=== PATIENT | female | born 1945 | race Caucasian/White ===

== ENCOUNTER 2018-07-02 04:15 | Emergency (ER) | payer OTHER ==
[2018-07-02] MEDS ORDERED: HYDROCODONE/APAP 10/325 TAB ONE (06:10)
--- NOTE | 2018-07-02 07:10 | ER ---
Nurse's Notes [facility] Name: Mireya Ahumada Age: 72 yrs Sex: Female : 1945 Arrival Date: 07/02/2018 Time: 04:16 Bed 4 Private MD: Diagnosis: Pain in left knee;Fall from standing height;left hip pain Presentation: 07/02 04:24 Presenting complaint: Patient states: Fell on L hip on 06/22 and had Xrays done on tl2 06/24. Xrays were negative and pt sent home with tramadol and Tylenol #3. Pt states the pain has not gone away and she is not able to bear weight on left leg. No deformity noted, pt reports swelling to BLE. Transition of care: patient was not received from another setting of care. Onset of symptoms was June 22, 2018. Risk Assessment: Do you want to hurt yourself or someone else? Patient reports no desire to harm self or others. Initial Sepsis Screen: Does the patient meet any 2 criteria? No. Patient's initial sepsis screen is negative. Does the patient have a suspected source of infection? No. Patient's initial sepsis screen is negative. Care prior to arrival: None. 04:24 Method Of Arrival: Wheelchair tl2 04:24 Acuity: REINALDO 3 tl2 Triage Assessment: 04:27 General: Appears in no apparent distress. uncomfortable, Behavior is calm, cooperative, tl2 appropriate for age. Pain: Complains of pain in left hip and left leg Pain currently is 10 out of 10 on a pain scale. Neuro: Level of Consciousness is awake, alert, obeys commands, Oriented to person, place, time, situation. Cardiovascular: Denies chest pain. Cardiovascular: Patient's skin is warm and dry. Pulses are all present. Edema is 2+ to left ankle, left foot, right ankle and right foot. Respiratory: Airway is patent Respiratory effort is even, unlabored, Respiratory pattern is regular, symmetrical. GI: No signs and/or symptoms were reported involving the gastrointestinal system. Derm: Skin is pink, warm \T\ dry. Musculoskeletal: Circulation, motion, and sensation intact. Range of motion: limited in left hip and left knee. Historical: - Allergies: 04:27 No Known Allergies; tl2 - Home Meds: 04:27 None [Active]; tl2 - PMHx: 04:27 Hypertension; tl2 - PSHx: 04:27 melanoma removed; tl2 - Immunization history:: Adult Immunizations up to date, Flu vaccine is not up to date. - Social history:: Smoking status: Patient/guardian denies using tobacco. - Ebola Screening: : No symptoms or risks identified at this time. Screenin:30 Abuse screen: Denies threats or abuse. Nutritional screening: No deficits noted. tl2 Tuberculosis screening: No symptoms or risk factors identified. Fall Risk Gait- Impaired (20 pts.). Assessment: 05:16 Reassessment: see triage assessment. tl1 07:00 Reassessment: RECD REPORT FROM ALEKSANDER CASEY. 72YO WF P/W PAIN 1 WK S/P FALL. NO RAD bp ABNORMALITIES OR DEFORMITIES NOTED. DISPO PENDING. Vital Signs: 04:27 BP 171 / 63; Pulse 79; Resp 20; Temp 98(O); Pulse Ox 97% on R/A; Weight 108.86 kg; tl2 Height 5 ft. 2 in. (157.48 cm); Pain 10/10; 05:56 BP 150 / 60; Pulse 85; Resp 17; Pulse Ox 98% ; Pain 7/10; tl1 07:00 BP 139 / 90; Pulse 90; Resp 16; Pulse Ox 97% ; bp 04:27 Body Mass Index 43.90 (108.86 kg, 157.48 cm) tl2 ED Course: 04:16 Patient arrived in ED. ds1 04:26 Triage completed. tl2 04:27 Arm band placed on right wrist. tl2 04:30 Patient has correct armband on for positive identification. Placed in gown. Bed in low tl2 position. Call light in reach. Side rails up X2. Adult w/ patient. 04:31 Mainor Cano MD is Attending Physician. ps1 05:17 No provider procedures requiring assistance completed. tl1 05:21 Knee Left 3 View XRAY In Process Unspecified. EDMS 05:39 CT completed. Pt tolerated procedure poorly. Patient moved back from CT. kw1 05:39 Pelvis Wo Cont In Process Unspecified. EDMS 06:58 Nathaniel Rodriges, RN is Primary Nurse. bp 07:15 Patient did not have IV access during this emergency room visit. tl2 Administered Medications: 06:04 Drug: [place] 10 mg-325 mg 1 tabs Route: PO; tl1 07:00 Follow up: Response: No adverse reaction; Pain is decreased tl2 Outcome: 07:09 Discharge ordered by . ps1 07:15 Discharged to home via wheelchair, with family. tl2 07:15 Condition: stable 07:15 Discharge instructions given to patient, family, Instructed on discharge instructions, follow up and referral plans. medication usage, Demonstrated understanding of instructions, follow-up care, medications, Prescriptions given X 3. 07:15 Patient left the ED. tl2 Signatures: Dispatcher [employer] [facility] Brooklynn Oakley ds1 Fatemeh Almaguer RN RN tl1 Aleksander Quintanilla RN RN tl2 Nathaniel Rodriges RN RN Mainor Thornton MD MD ps1 Claudia Gregory kw1
--- NOTE | 2018-07-02 07:10 | EDPHYS ---
Physician Documentation [facility] Name: Mireya Ahumada Age: 72 yrs Sex: Female : 1945 Arrival Date: 07/02/2018 Time: 04:16 Bed 4 Private MD: ED Physician Mainor Cano HPI: 07/02 04:45 This 72 yrs old Female presents to ER via Wheelchair with complaints of Fall ps1 Injury. 04:45 patient fell 9 days ago and was seen at [facility] for same complaint. ps1 Reportedly has pain in left hip and knee that is not controlled with the tramadol that was rx'd at that time. Pain rated as moderate and worse with ambulation. No remitting factors. Now has lower leg swelling at ankle. . Historical: - Allergies: 04:27 No Known Allergies; tl2 - Home Meds: 04:27 None [Active]; tl2 - PMHx: 04:27 Hypertension; tl2 - PSHx: 04:27 melanoma removed; tl2 - Immunization history:: Adult Immunizations up to date, Flu vaccine is not up to date. - Social history:: Smoking status: Patient/guardian denies using tobacco. - Ebola Screening: : No symptoms or risks identified at this time. ROS: 04:45 Constitutional: Negative for fever, chills, and weight loss, Eyes: Negative for injury, ps1 pain, redness, and discharge, Cardiovascular: Negative for chest pain, palpitations, and edema, Respiratory: Negative for shortness of breath, cough, wheezing, and pleuritic chest pain, Abdomen/GI: Negative for abdominal pain, nausea, vomiting, diarrhea, and constipation, Back: Negative for injury and pain, Skin: Negative for injury, rash, and discoloration, Neuro: Negative for headache, weakness, numbness, tingling, and seizure. 04:45 MS/extremity: Positive for pain, of the left knee and left hip. Exam: 04:45 Constitutional: This is a well developed, well nourished patient who is awake, alert, ps1 and in no acute distress. Head/Face: Normocephalic, atraumatic. Eyes: Pupils equal round and reactive to light, extra-ocular motions intact. Lids and lashes normal. Conjunctiva and sclera are non-icteric and not injected. Chest/axilla: Normal chest wall appearance and motion. Nontender with no deformity. No lesions are appreciated. Cardiovascular: Regular rate and rhythm. No gallops, murmurs, or rubs. Normal PMI, no JVD. No pulse deficits. Respiratory: Lungs have equal breath sounds bilaterally, clear to auscultation and percussion. No rales, rhonchi or wheezes noted. No increased work of breathing, no retractions or nasal flaring. Abdomen/GI: Soft, non-tender, with normal bowel sounds. No distension or tympany. No guarding or rebound. No evidence of tenderness throughout. Neuro: Awake and alert, GCS 15, oriented to person, place, time, and situation. Cranial nerves II-XII grossly intact. Sensory grossly intact. 04:45 Musculoskeletal/extremity: Extremities: grossly normal except: noted in the left hip: pain, noted in the left knee: pain, no evidence of ecchymosis, laxity and effusion. Vital Signs: 04:27 BP 171 / 63; Pulse 79; Resp 20; Temp 98(O); Pulse Ox 97% on R/A; Weight 108.86 kg; tl2 Height 5 ft. 2 in. (157.48 cm); Pain 10/10; 05:56 BP 150 / 60; Pulse 85; Resp 17; Pulse Ox 98% ; Pain 7/10; tl1 07:00 BP 139 / 90; Pulse 90; Resp 16; Pulse Ox 97% ; bp 04:27 Body Mass Index 43.90 (108.86 kg, 157.48 cm) tl2 MDM: 04:44 Patient medically screened. ps1 07:10 Data reviewed: vital signs, nurses notes, radiologic studies, and as a result, I will ps1 discharge patient. Counseling: I had a detailed discussion with the patient and/or guardian regarding: the historical points, exam findings, and any diagnostic results supporting the discharge/admit diagnosis, radiology results, the need for outpatient follow up, to return to the emergency department if symptoms worsen or persist or if there are any questions or concerns that arise at home. 07/02 04:52 Order name: Knee Left 3 View XRAY ps1 07/02 05:11 Order name: Pelvis Wo Cont EDMS Administered Medications: 06:04 Drug: [place] 10 mg-325 mg 1 tabs Route: PO; tl1 07:00 Follow up: Response: No adverse reaction; Pain is decreased tl2 Disposition: 07/02/18 07:09 Discharged to Home. Impression: Pain in left knee, Fall from standing height, left hip pain. - Condition is Stable. - Discharge Instructions: Musculoskeletal Pain. - Prescriptions for Anaprox DS 550 mg Oral Tablet - take 1 tablet by ORAL route every 12 hours As needed; 20 tablet. Tylenol- Codeine #3 300-30 mg Oral Tablet - take 2 tablet by ORAL route every 6 hours As needed; 30 tablet. Zofran 4 mg Oral Tablet - take 1 tablet by ORAL route every 12 hours As needed; 20 tablet. - Medication Reconciliation Form, Thank You Letter, Antibiotic Education, Prescription Opioid Use form. - Follow up: Private Physician; When: As needed; Reason: Recheck today's complaints, Continuance of care, Re-evaluation by your physician. Follow up: Emergency Department; When: As needed; Reason: Worsening of condition. - Problem is an ongoing problem. - Symptoms have improved. Signatures: Dispatcher [employer] [facility] Fatemeh Almaguer RN RN tl1 Desiree Quintanilla RN RN tl2 Mainor Cano MD MD ps1 Corrections: (The following items were deleted from the chart) 05:11 04:52 Abdomen Pelvis Wo Con+CT.RAD.BRZ ordered. [facility] 07:15 07:09 07/02/2018 07:09 Discharged to Home. Impression: Pain in left knee; Fall from tl2 standing height; left hip pain. Condition is Stable. Forms are Medication Reconciliation Form, Thank You Letter, Antibiotic Education, Prescription Opioid Use. Follow up: Private Physician; When: As needed; Reason: Recheck today's complaints, Continuance of care, Re-evaluation by your physician. Follow up: Emergency Department; When: As needed; Reason: Worsening of condition. Problem is an ongoing problem. Symptoms have improved. ps1
[2018-07-02 07:20] VITALS: TEMP 98
[2018-07-02 07:23] VITALS: BP 139/90; O2SAT 97
--- NOTE | 2018-07-02 08:36 | RAD REPORT ---
EXAM DESCRIPTION: RAD - Knee Left 3 View - 07/02/2018 5:20 am CLINICAL HISTORY: Fall, knee pain COMPARISON: None. FINDINGS: No gross fracture deformity is seen. Medial compartment narrowing is seen with small eunice nal spurs. There is mild spurring along the tibial spine. Patella femoral joint space narrowing is pr esent with more prominent femoral and patella marginal spurring. No dislocation or periosteal reactio n. No pathologic bone process.No joint effusion seen. Contusion or edema changes are present in the s oft tissues around the knee joint. Dilated varicosities noted. No foreign body. IMPRESSION: Knee joint degenerative changes are present as detailed without acute bone or joint find ing. Clinical concerns for internal derangement or occult bony injury could be further assessed with MR im aging.
--- NOTE | 2018-07-02 09:14 | RAD REPORT ---
EXAM DESCRIPTION: CT - Pelvis Wo Cont - 07/02/2018 6:51 am CLINICAL HISTORY: Fall with left hip pain June 22, persistent pain symptoms, pain out of proporti on to x-ray findings A preliminary report was provided at the time of the study and reviewed prior to final report. COMPARISON: None. TECHNIQUE: Axial 2 millimeter thick images of the pelvis were obtained to include the hip joints. Sa gittal and coronal reformatted images were generated and reviewed. The CT scan was performed using dose optimization techniques as appropriate to a performed exam incl uding one or more of the following: Automated exposure control, adjustment of the mA and/or kV accord ing to patient size (this includes techniques or standardized protocols for targeted exams where dose is matched to indication/reason for exam) and use of iterative reconstruction technique. FINDINGS: L3-L5 bodies are normal in height. No subluxation abnormality. No lytic, sclerotic or expa nsile bony process. Patient has prominent facet joint degenerative change most pronounced at L4-5. Si gnificant degenerative disc disease with degenerative gas at the L5-S1 level. Central canal detail is inherently limited. Patient may well have disc herniation or prominent disc bulge at L5-S1. Mild symmetric SI joint degenerative change present. No sacral ala fracture seen. Moderate pubic symphysis degenerative changes are present. No fracture of the bony pelvis. Patient birch s bilateral hip joint degenerative change. No AVN or focal femoral head abnormality. No fracture of either proximal femur. No periarticular mass or hematoma. No significant contusion or edema changes seen in the overlying fatty tissue. In the po sterior subcutaneous fat left gluteal region there is a 6.2 centimeter discoid mass showing a dense c alcified rim. This is probably an old hematoma that calcified. It is unlikely this is related to the recent trauma. This degree of calcification would not likely have developed in 10 days. IMPRESSION: No fracture is identified. No acute bone, joint or soft tissue finding. Nonacute findings are detailed in the body of the report.
== END 2018-07-02 07:15 | disposition home or self-care (01) ==
LOC: ER 04:15
DX: M25.552 Pain in left hip (principal); W19.XXXA Unspecified fall, initial encounter; Y93.9 Activity, unspecified; Y92.9 Unspecified place or not applicable; I10 Essential (primary) hypertension
CPT/HCPCS: 72192; 99284